=== PATIENT | female | born 1965 | race African-American/Black ===

== ENCOUNTER 2023-12-08 20:19 | Emergency (ER) | payer BC ==
[~2023-12-08] VITALS: Ht 157.5 cm; Wt 65.8 kg
[2023-12-08] MEDS ORDERED: AMOX-430 PO (23:47)
[2023-12-08] MEDS ORDERED: GUAI1TBM19 PO (23:47)
[2023-12-08] MEDS ORDERED: BENZ-13 PO (23:47)
[2023-12-09] MEDS ORDERED: ACETAMINOPHEN ES 500 MG TABLET ONE (00:28)
[2023-12-09] MEDS ORDERED: AMOX/CLAVULANATE 875 MG TABLET ONE (00:29)
[2023-12-09] MEDS: ACETAMINOPHEN ES 500 MG TABLET PO ONE (00:29)
[2023-12-09] MEDS: AMOX/CLAVULANATE 875 MG TABLET PO ONE (00:29)
[2023-12-09 00:42] VITALS: BP 138/78; TEMP 99; O2SAT 100
== END 2023-12-09 00:45 | disposition home or self-care (01) ==
LOC: ER 20:26
DX: J18.9 Pneumonia, unspecified organism (principal); R50.9 Fever, unspecified; R05.9 Cough, unspecified; I10 Essential (primary) hypertension; Z20.822 Contact with and (suspected) exposure to COVID-19
CPT/HCPCS: 71045-TC